=== PATIENT | female | born 1980 | race Caucasian/White ===

== ENCOUNTER 2022-07-07 12:21 | Outpatient (CLI) | payer OTHER, SELFPAY ==
[2022-07-07 13:07] LABS: Basophils Percent Auto 0.4 % (0.2-1.2); Eosinophils Absolute Auto 0.1 K/mm3 (0-0.3); Eosinophils Percent Auto 0.7 % (0-4.4); Hematocrit 38.6 % (37.0-47.0); Hemoglobin 12.8 g/dL (12.0-15.0); Immature Granulocyte Absolute 0.04 K/mm3 (0.00-0.031); Immature Granulocyte Percent A 0.5 % (0-0.5); Lymphocytes Absolute Auto 2.06 K/mm3 (0.9-3.2); Lymphocytes Percent Auto 24.4 % (18.3-44.2); Mean Corpuscular HGB Conc 33.2 g/dl (32-36); Mean Corpuscular Hemoglobin 31.1 pg (26-34); Mean Corpuscular Volume 93.9 fl (80-100); Mean Platelet Volume 8.2 fl (7.4-10.4); Monocytes Absolute Auto 0.6 K/mm3 (0.1-0.6); Monocytes Percent Auto 7.3 % (2.6-8.5); Neutrophils Absolute Auto 5.6 K/mm3 (1.3-6.7); Neutrophils Percent Auto 66.7 % (45.5-73.1); Platelet Count Result 250 k/mm3 (150-375); Red Blood Count 4.11 M/mm3 (4.2-5.4); Red Cell Distribution Width 12.4 % (11.5-14.5); White Blood Count 8.4 K/mm3 (4.5-10.0)
[2022-07-07 13:16] LABS: Alanine Aminotransferase 17 U/L (6-35); Albumin Level 4.6 g/dL (3.5-5.1); Alkaline Phosphatase 58 U/L (38-126); Anion Gap 13 mmol/L (8-16); Aspartate Amino Transferase 25 U/L (14-36); Bilirubin,Total 0.5 mg/dL (0.2-1.3); Blood Urea Nitrogen 8 mg/dL (7-17); Calcium 9.4 mg/dL (8.4-10.2); Carbon Dioxide 27 mmol/L (22-30); Chloride 102 mmol/L (98-107); Estimated Glomerular Filt Rate > 60; Glucose 82 mg/dL (65-110); Sodium 142 mmol/L (137-145)
[2022-07-07 13:38] LABS: Erythrocyte Sedimentation Rate 29 mm/hr (0-20)
[2022-07-07 13:52] LABS: Rheumatoid Factor < 8.6 IU/ML (<12)
[2022-07-07 14:07] LABS: Vitamin D 25 Hydroxy 50.5 ng/mL
[2022-07-09 19:50] LABS: Anti Cyclic Citrullinated Pept <16 Units (<20)
== END 2022-07-07 12:22 | disposition home or self-care (01) ==
PROVIDERS: PCP Physician Assistant; Visit Provider Orthopaedic Surgery
DX: M19.049 Primary osteoarthritis, unspecified hand (principal)
CPT/HCPCS: 36415; 80053; 82306; 85025; 85652; 86038; 86039; 86200; 86430